=== PATIENT | female | born 2000 | race Caucasian/White ===

== ENCOUNTER → 2024-02-09 15:19 | Outpatient (REF) | payer BC, SELFPAY ==
[2024-02-09 15:53] LABS: % Basophils 0.9 % (0-2); % Eosinophils 1.2 % (0-6); % Immature Granulocytes 0.1 % (0-0.5); % Lymphocytes 36.7 % (20.5-51.1); % Monocytes 6.6 % (1.7-9.3); % Neutrophils 54.5 % (42.2-75.2); Absolute Basophils 0.1 10^3/uL (0-0.2); Absolute Eosinophils 0.1 10^3/uL (0-0.7); Absolute Lymphocytes 2.6 10^3/uL (1.2-3.4); Absolute Monocytes 0.5 10^3/uL (0.1-0.6); Absolute Neutrophils 3.8 10^3/uL (1.4-6.5); Hematocrit 41.1 % (37.0-47.0); Hemoglobin 13.8 g/dL (12.0-16.0); Mean Corp Hgb Conc. 33.6 g/dL (33.0-37.0); Mean Corpuscular Hgb 30.3 pg (27.0-31.0); Mean Corpuscular Volume 90.3 fL (81.0-99.0); Mean Platelet Volume 10.1 fL (7.4-10.4); Nucleated Red Blood Cells % 0 %; Platelet Count 300 10^3/uL (130-400); Red Blood Cell Count 4.55 10^6/uL (4.20-5.40); Red Cell Dist. Width 12.6 % (11.5-14.5); White Blood Cell Count 6.9 10^3/uL (4.8-10.8)
[2024-02-09 16:20] LABS: ALT (SGPT) 13 U/L (0-35); AST (SGOT) 21 U/L (14-36); Albumin 4.7 g/dl (3.5-5.0); Alkaline Phosphatase 57 U/L (38-126); Blood Urea Nitrogen 12 mg/dl (7-17); Calcium 9.9 mg/dl (8.4-10.2); Carbon Dioxide 28 mmol/L (22-30); Chloride 99 mmol/L (98-107); Glucose 76 mg/dl (70-99); Sodium 136 mmol/L (135-145); Total Bilirubin 0.5 mg/dl (0.2-1.3); Total Protein 7.7 g/dl (6.3-8.2); eGFR > 60.00
[2024-02-09 16:28] LABS: Potassium 4.4 mmol/L (3.5-5.1)
[2024-02-09 17:13] LABS: Free T4 1.09 ng/dl (0.78-2.19)
== END ==
LOC: REG 15:19
PROVIDERS: ATTENDING PHYSICIAN Student in an Organized Health Care Education/Training Program
DX: R00.2 Palpitations (principal); R42 Dizziness and giddiness; R63.0 Anorexia
CPT/HCPCS: 36415; 80053; 84439; 84443; 85025

== ENCOUNTER → 2024-03-14 12:02 | Outpatient (REF) | payer BC, SELFPAY | LOC: CLAB 12:02 | PROVIDERS: ATTENDING PHYSICIAN Emergency Medicine | DX: R39.9 Unspecified symptoms and signs involving the genitourinary system (principal) | CPT/HCPCS: 87086; 87088; 87186 ==

== ENCOUNTER → 2024-03-28 13:45 | Outpatient (REF) | payer BC, SELFPAY ==
[2024-03-28 15:52] LABS: Free T4 1.12 ng/dl (0.78-2.19)
[2024-03-28 16:06] LABS: TSH 1.16 uIU/ml (0.47-4.68)
[2024-03-30 18:27] LABS: Thyroid Peroxidase Ab (TPO) 0.8 IU/mL (0.0-9.0)
[2024-03-30 20:39] LABS: TSH Receptor Antibody <1.10 IU/L (<=1.75)
== END ==
LOC: REG 13:45
PROVIDERS: ATTENDING PHYSICIAN Student in an Organized Health Care Education/Training Program
DX: R79.89 Other specified abnormal findings of blood chemistry (principal)
CPT/HCPCS: 36415; 83520; 84439; 84443; 84481; 86376

== ENCOUNTER → 2024-04-18 13:56 | Outpatient (REF) | payer BC, SELFPAY | LOC: RCS 13:56 | PROVIDERS: ATTENDING PHYSICIAN Student in an Organized Health Care Education/Training Program | DX: Z00.8 Encounter for other general examination (principal); R00.2 Palpitations; R42 Dizziness and giddiness | CPT/HCPCS: 93306 ==

== ENCOUNTER 2025-08-04 22:06 | Emergency (ER) | payer BC, SELFPAY ==
[2025-08-04 22:13] VITALS: BP 153/104
[2025-08-04 23:25] VITALS: BP 155/85
[2025-08-04 23:30] VITALS: BMI 21.7
--- NOTE | 2025-08-05 01:27 | ED.GENMED ---
History of Present Illness
General
Chief Complaint: Anxiety
Source: patient, records and significant other
Exam Limitations: none
Time Seen by Provider: 08/05/25 00:55
Nursing documentation reviewed up to this point in time: agreed with
History of Present Illness
History of Present Illness:
25-year-old female with history of anxiety presents to the emergency department for evaluation of an insomnia. Patient reports that she has not been able to sleep for the past 3 nights. She says she has been taking hydroxyzine (she says she was
prescribed this for anxiety in November but has not started it as of recently) but it has not been helping with her sleep. She says she has tried melatonin but this also does not seem to be helping. She describes restless sleep where she may drift
off for few minutes but then quickly wakes up. She says that she has associated anxiety and restlessness. She denies any suicidality or homicidality. She denies any hallucinations. She states she had similar issue a few years ago and ultimately
was admitted at [facility] for inpatient psychiatric treatment. She does admit that she has been using alcohol she says she drinks about 5 nights a week, no alcohol use over the past few days. She denies any drug use. Denies any caffeine use.
Past History
Past History
ED Past Medical History: Other (Seasonal allergies)
ED Past Surgical History: None
Social History
Tobacco: Vaping ('Socially')
Alcohol: Daily (Scotch)
Personal: Single
Living: with roommate
Employment: Employed ([employer])
Family History
Family History: Other (Noncontributory)
Review of Systems
Review of Systems
All Other Systems: ROS reviewed and negative except as documented in HPI and ROS
Respiratory: Denies trouble breathing
Cardiac: Denies chest pain
ABD/GI: Denies abdominal pain
Neurological: Denies dizzy or headache
Psychiatric: Reports anxiety and other (Insomnia); Denies depression, suicidal or hallucinations
Phy Exam
Physical Exam
Physical Exam:
General: Awake, alert, oriented x3; no acute distress
Head: Normocephalic, atraumatic
Eyes: Conjunctiva normal, EOMI, pupils equal round and reactive to light bilaterally
Throat: Airway intact, handling secretions
Neck: Trachea midline, supple without meningismus
Lungs: Clear to auscultation bilaterally, no wheezing, rales, rhonchi
Heart: Regular rate and rhythm, no murmurs, gallops, or rubs
Neuro: Grossly intact
Extremities: Warm and well-perfused
Psych: Bizarre affect, 'anxious' mood
Scores
Heart Failure Risk
Heart Failure Risk Score: Not Applicable
Heart Score for Chest Pain Patients
STEMI patient?: Not applicable
Withdrawal Assessment of Alcohol
Withdrawal Assessment Completed?: Not applicable
Course
Orders/Labs/Results
Orders:
Orders
08/05/25 01:00
Crisis Consult Urgent
Reason for Consult: manic
08/05/25 01:24
Drug Screen, Urine [Urine Drug Abuse Screen] Urgent
Date Specimen was Collected: 08/05/25
Time Specimen was Collected: 01:29
HCG, Urine Qualitative Screen Urgent
Date Specimen was Collected: 08/05/25
Time Specimen was Collected: 01:29
Test Result ONCE
08/05/25 01:25
Trazodone [Desyrel] 50 mg PO NOW STA
Vital Signs
Initial and Last Documented VS:
Initial Vital Signs
Temp Pulse Resp BP Pulse Ox
36.8 C 93 18 153/104 98
08/04/25 22:13 08/04/25 22:13 08/04/25 22:13 08/04/25 22:13 08/04/25 22:13
Last Documented Vital Signs
Temp Pulse Resp BP Pulse Ox
36.8 C 95 18 155/85 97
08/04/25 22:13 08/04/25 23:25 08/04/25 22:13 08/04/25 23:25 08/05/25 01:28
MDM/Problems Addressed
Differential Diagnosis Includes:
Desi, drug/alcohol use, anxiety disorder
MDM/Problems Addressed:
25-year-old female presents with insomnia over the past few days as described above. Similar presentation a little over a year ago which resulted in inpatient psychiatric stay at [facility]. Vitals and exam as above. Plan to check UDS and hCG. Will
discuss case with crisis for assessment. Can trial trazodone.
Crisis evaluated patient, offered inpatient psychiatric treatment but patient declined. No clear grounds at this point for an involuntary psychiatric admission. Reasonable to trial trazodone for insomnia and anxiety. Patient is well-established
with a psychiatrist she says. We did speak about her report of alcohol use she says she has not been drinking recently and does not feel that she needs alcohol rehab although we did provide resources in case she changes her mind. At this point we
will plan for discharge with outpatient psychiatry follow-up.
*Pulse Oximetry
SaO2: 97
Oxygen Mode of Delivery: Room air
Patient hypoxic: no (97%)
*Critical Care Note
Total Time (30-74mins, 75-104mins- exclusive of procedures): Not Applicable
Data Reviewed
Source: patient and records
Patient Management
Discussion with other providers: Other (Discussed with crisis team)
Escalation/DeEscalation of care consider admission/obs:
Offered inpatient psychiatric admission as described above�patient does not feel that she needs this and no grounds for involuntary admission
ED Attending Note
-
Portions of this chart may have been created with voice recognition software.� Occasional wrong word or��sound alike� substitutions may have occurred due to the inherent limitations of voice recognition software.
Discharge Plan
Departure
Patient with high blood pressure during this ER visit?: Yes
Discharge Problem:
Insomnia
Instructions: Insomnia, Good sleep hygiene
Prescriptions:
New
trazodone 50 mg tablet
50 mg PO HS PRN (Reason: insomnia) Qty: 20 0RF
No Action
levonorgestrel-ethinyl estrad [Sronyx] 1 EACH tablet
1 ea PO DAILY
Referrals:
Edilia Benitez MD [Family Provider, Internal Medicine] - Follow up in 1 week
Activity Restrictions/Additional Instructions:
You should follow-up with your primary care doctor as well as your psychiatrist within the next week after your ER visit. You should return to the emergency room if you have any worsening symptoms or if you decide that you need more support or help
for your alcohol use or mental health.
Interventions
Interventions:
*Risk Screen - Suicide Last Done: 08/04/25 22:16
*General Assessment Last Done: 08/04/25 23:20
*Neglect/Abuse Screening Last Done: 08/04/25 22:16
*ED- Fall Risk Assessment Last Done: 08/04/25 23:20
*ED COVID-19 Vaccine History Last Done: 08/04/25 23:20
ED-Psychological Assessment Last Done: 08/04/25 23:20
Discharge Date and Time
Print Language: DIVEHI
[2025-08-05] MEDS: DESYREL 50 MG PO (01:35)
[2025-08-05 01:53] LABS: HCG, Urine Qualitative Screen Negative
[2025-08-05 02:06] VITALS: BP 139/88
== END 2025-08-05 02:21 | disposition home or self-care (01) ==
LOC: EMR 22:06
PROVIDERS: EMERGENCY PHYSICIAN Emergency Medicine; FAMILY PHYSICIAN Student in an Organized Health Care Education/Training Program
DX: G47.00 Insomnia, unspecified (principal); R03.0 Elevated blood-pressure reading, without diagnosis of hypertension; F41.9 Anxiety disorder, unspecified; F17.290 Nicotine dependence, other tobacco product, uncomplicated
CPT/HCPCS: 99283; 80306; 81025